=== PATIENT | female | born 1990 | race Two or more races ===

== ENCOUNTER 2023-08-27 20:02 | Emergency (ER) | payer OTHER ==
[~2023-08-27] VITALS: Ht 157.5 cm; Wt 95.3 kg
[~2023-08-27 20:02] MED LIST: AMOX1TAB12 PO; MACROBID 100 M100 MG PO; MUCINEX600 MG; RELAGESIC TABLE1 TAB; TUSSI PRES-B L120 M1; TUSSI PRES-B L120 M1 PO
[2023-08-27] MEDS ORDERED: MEPERIDINE HCL/PF 25 MG/ML VIAL IM STA (23:06)
[2023-08-27] MEDS ORDERED: PROMETHAZINE HCL 25 MG/ML AMPUL IM STA (23:07)
[2023-08-27 23:45] LABS: MEAN CORPUSCULAR HGB CONC 31.8 g/dl (32.0-36.0); PLATELET COUNT 366 K/uL (150-450); RED BLOOD COUNT 4.59 M/uL (4.00-6.00)
[2023-08-27 23:46] LABS: HEMOGLOBIN 10.5 g/dL (12.0-15.00); MEAN CELL VOLUME 71.8 fL (80.00-100.00); MEAN CORPUSCULAR HEMOGLOBIN 22.8 pg (27.00-32.0); RED CELL DISTRIBUTION WIDTH 16.9 % (11.5-14.5)
[2023-08-28 00:09] LABS: CALCIUM 9.1 mg/dL (8.5-10.1); CREATININE SERUM 0.69 mg/dL (0.55-1.02); GFR 99.9; POTASSIUM 4.66 mEq/L (3.5-5.1)
[2023-08-28 01:28] LABS: URINE APPEARANCE Cloudy; URINE BILIRRUBIN Negative (NEGATIVE); URINE BLOOD Moderate; URINE COLOR Yellow; URINE GLUCOSE Negative (NEGATIVE); URINE LEUKOCYTE Trace; URINE NITRATE Negative; URINE PROTEIN Negative (NEGATIVE); URINE UROBILINOGEN 0.2 E.U./dl
[2023-08-28 01:33] LABS: URINE RBC 53.4 uL (0.0-20.8); URINE WBC 121.3 uL (0.0-23.2)
[2023-08-28 02:19] LABS: URINE BACTERIA > 9821.5 uL (0.0-1933)
[2023-08-28 02:20] LABS: URINE MUCUS MODERATE
[2023-08-28] MEDS ORDERED: CEFTRIAXONE SODIUM 1,000 MG VIAL IV STA (03:10)
[2023-08-28] MEDS ORDERED: KETO10TA2 PO ×2 (03:12→03:13)
[2023-08-28] MEDS ORDERED: ONDANSETRON ODT4 MG PO ×2 (03:12→03:13)
[2023-08-28] MEDS ORDERED: CEPHALEXIN500 MG PO (03:13)
== END 2023-08-28 03:40 ==
LOC: ER 20:03
DX: N39.0 Urinary tract infection, site not specified (principal); R10.9 Unspecified abdominal pain